=== PATIENT | female | born 1955 | race Caucasian/White ===

== ENCOUNTER 2016-08-26 06:59 | Emergency (ER) | payer OTHER ==
[~2016-08-26] VITALS: Ht 167.6 cm; Wt 75.0 kg
[~2016-08-26 06:59] MED LIST: DIAZ5 PO; IBUP800 PO; IBUP800T23 PO; LEVO75TA3 PO; LORA10TA PO; OXYC15TA PO; TIZA4 PO
[2016-08-26 07:00] VITALS: BP 146/78; PULSE 88; RESP 17; TEMP 97.8; O2SAT 99
--- NOTE | 2016-08-26 07:08 | PD ---
HPI . sinus pressure/ear ache and swollen glands x 1 week Chief Complaint: ENT Complaint Time Seen by Provider: 07:08 Travel History International Travel<30 days: No Contact w/Intl Traveler<30days: No Traveled to known affect area: No History of Present Illness HPI 61 yr old female here with c/o sinus pressure, earache, swollen glands x 1 week. She says she has been feeling a lot of pressure in her head. She reports some issues with swallowing and having some discomfort in her throat. She also reports ear pain R>L. She denies any fever or chills. PFSH Past Medical History Hx Anticoagulant Therapy: No COPD: Yes GERD: Yes Thyroid Disease: Yes Social History Tobacco Use: No (quit last year) Allergies-Medications (Allergen,Severity, Reaction): Coded Allergies: Morphine (Verified Allergy, Unknown, 08/26/16) Reported Meds & Prescriptions Reported Meds & Active Scripts Active Augmentin (Amoxicillin-Clavulanate) 875-125 mg Tab 875 Mg PO BID not for use in CrCl <30 ml/min. Reported Pantoprazole (Pantoprazole Sodium) 40 Mg Tab 40 Mg PO DAILY Ventolin Hfa 18 GM Inh (Albuterol Sulfate) 90 Mcg/Act Aer 1 Puff INH Q4H PRN Zocor (Simvastatin) 20 Mg Tab 20 Mg PO DAILY Tizanidine (Tizanidine HCl) 4 Mg Cap 4 Mg PO TID Lortab (Hydrocodone-Acetaminophen) 7.5-325 Mg Tab 1 Tab PO Q6H PRN Levothyroxine (Levothyroxine Sodium) 112 Mcg Tab 112 Mcg PO DAILY Valium (Diazepam) 5 Mg Tab 5 Mg PO BID PRN Review of Systems General / Constitutional: No: Fever Eyes: No: Visual changes HENT: Positive: Sore Throat, Congestion, Earache, No: Headaches Cardiovascular: No: Chest Pain or Discomfort Respiratory: No: Shortness of Breath Gastrointestinal: No: Abdominal Pain Genitourinary: No: Dysuria Musculoskeletal: No: Pain Skin: No Rash Neurologic: No: Weakness Psychiatric: No: Depression Endocrine: No: Polydipsia Hematologic/Lymphatic: No: Easy Bruising Physical Exam Narrative GENERAL: AAO x 3, no acute distress, Well-nourished, well-developed patient. SKIN: Warm and dry. No visible rashes or bruising. HEAD: Normocephalic and atraumatic. EYES: No scleral icterus. No injection or drainage. ENT: No nasal drainage noted. Mucous membranes pink. Airway patent.+ frontal and maxillary sinus tenderness Mild post nasal drip, TM with air bubbles b/l, no bulging, erythema or purulence of TM NECK: Supple, trachea midline. No JVD. no lymphadenopathy. CARDIOVASCULAR: Regular rate and rhythm without murmurs, gallops, or rubs. RESPIRATORY: Breath sounds equal bilaterally. No accessory muscle use. No rhonchi or rales. no wheezing GASTROINTESTINAL: Abdomen soft, non-tender, nondistended. EXTREMITIES: No cyanosis or edema. BACK: Nontender without obvious deformity. No CVA tenderness. PSYCH: AAO x 3, normal affect. Data Data Last Documented VS Vital Signs Date Time Temp Pulse Resp B/P Pulse Ox O2 Delivery O2 Flow Rate FiO2 08/26/16 07:00 97.8 88 17 146/78 99 MDM Medical Decision Making Medical Screen Exam Complete: Yes Emergency Medical Condition: Yes Medical Record Reviewed: Yes Differential Diagnosis sinusitis, allergic rhinitis, pharyngitis, less likely bronchitis Narrative Course 61 yr old female here with c/o sinus pressure, earache, swollen glands x 1 week. She says she has been feeling a lot of pressure in her head. She reports some issues with swallowing and having some discomfort in her throat. She also reports ear pain R>L. She denies any fever or chills. Patient seen and examined. She has some post nasal drip and frontal and maxillary sinus tenderness. She appears to have an acute sinusitis. I will treat with augmentin. Treatment plan discussed with patient and she is in agreement. She was advised to f/u with her pcp. Diagnosis Primary Impression: Acute sinusitis Qualified Code: J01.10 - Acute frontal sinusitis, recurrence not specified Patient Instructions: General Instructions, Sinusitis (ED) Additional Instructions: Please return to emergency department if your symptoms return or worsen. Follow up with your primary care provider. Take medications as prescribed. Med/Other Pt SpecificInfo: Prescription(s) given Scripts Amoxicillin-Clavulanate (Augmentin)875-125 mg [id number] Mg PO BID #20 TAB not for use in CrCl <30 ml/min. Prov:Dain Ricketts MD 08/26/16 Disposition: 01 DISCHARGE HOME Condition: Stable Nadya Jacinto August 26, 2016 07:08
[2016-08-26] MEDS ORDERED: LEVO112T2 PO (07:15)
[2016-08-26] MEDS ORDERED: HYDR-3534 PO (07:15)
[2016-08-26] MEDS ORDERED: VENTAER INH (07:18)
[2016-08-26] MEDS ORDERED: ZOCO20TA PO (07:18)
[2016-08-26] MEDS ORDERED: PANT40TA3 PO (07:18)
[2016-08-26] MEDS ORDERED: TIZA4CAP3 PO (07:18)
[2016-08-26] MEDS ORDERED: AUGM875T PO (07:21)
== END 2016-08-26 08:52 | disposition home or self-care (01) ==
LOC: NEPK 06:59
DX: J01.10 Acute frontal sinusitis, unspecified (principal); Z87.891 Personal history of nicotine dependence
CPT/HCPCS: 99283

== ENCOUNTER 2016-11-29 08:00 | Emergency (ER) | payer OTHER ==
[~2016-11-29] VITALS: Ht 167.6 cm; Wt 72.5 kg
[~2016-11-29 08:00] MED LIST changes: +AUGM875T PO; +HYDR-3534 PO; -IBUP800 PO; -IBUP800T23 PO; +LEVO112T2 PO; -LEVO75TA3 PO; -LORA10TA PO; -OXYC15TA PO; +PANT40TA3 PO; -TIZA4 PO; +TIZA4CAP3 PO; +VENTAER INH; +ZOCO20TA PO
[2016-11-29 08:01] VITALS: BP 135/79; PULSE 114; RESP 15; TEMP 98.2; O2SAT 98
[2016-11-29] MEDS ORDERED: FLUT1SPR5 EACH NARE (09:14)
[2016-11-29] MEDS ORDERED: CYCL1TAB29 PO (09:14)
[2016-11-29] MEDS ORDERED: DIAZ5 PO (09:14)
[2016-11-29 09:40] VITALS: PULSE 88; O2SAT 96
--- NOTE | 2016-11-29 09:43 | PD ---
HPI Chief Complaint: Skin Problem Time Seen by Provider: 09:39 Travel History International Travel<30 days: No Contact w/Intl Traveler<30days: No Traveled to known affect area: No History of Present Illness HPI 61-year-old female presents to emergency department with complaint of an itchy rash to the back of her right calf since Monday. She says it was a small area that went away and another area has developed just right above the. Reports that it is itchy and raised. Denies fever, vomiting. Denies new exposures to lotions, soaps, detergents, perfumes, medications, foods. Has been rubbing it with alcohol to decrease the itching for symptom management. Allergies to morphine. Has not tried any other treatments to alleviate her symptoms. Symptoms are mild in severity. Has no other medical complaints. No other modifying factors or associated signs and symptoms. History Past Surgical History Surgical History: No Previous Surgery Social History Alcohol Use: No Tobacco Use: No Allergies-Medications (Allergen,Severity, Reaction): Coded Allergies: Morphine (Verified Allergy, Unknown, 11/29/16) Reported Meds & Prescriptions Reported Meds & Active Scripts Active Reported Flonase Nasal [place] (Fluticasone Nasal [place]) 50 Mcg/Act [place] 50 Mcg EACH NARE BID Flexeril (Cyclobenzaprine HCl) 10 Mg Tab 10 Mg PO TID Valium (Diazepam) 5 Mg Tab 5 Mg PO BID PRN Pantoprazole (Pantoprazole Sodium) 40 Mg Tab 40 Mg PO DAILY Ventolin Hfa 18 GM Inh (Albuterol Sulfate) 90 Mcg/Act Aer 1 Puff INH Q4H PRN Zocor (Simvastatin) 20 Mg Tab 20 Mg PO DAILY Tizanidine (Tizanidine HCl) 4 Mg Cap 4 Mg PO TID Lortab (Hydrocodone-Acetaminophen) 7.5-325 Mg Tab 1 Tab PO Q6H PRN Levothyroxine (Levothyroxine Sodium) 112 Mcg Tab 112 Mcg PO DAILY Review of Systems Except as stated in HPI: all other systems reviewed are Neg Physical Exam Narrative GENERAL: Well-nourished, well-developed female patient, in no acute distress; afebrile, nontoxic-appearing SKIN: Warm and dry. Approximately 1.5 cm in diameter raised, pustular rash to the right calf; without erythema; no signs of cellulitis. No signs of infection. HEAD: Atraumatic. Normocephalic. EYES: Pupils equal and round. No scleral icterus. No injection or drainage. ENT: Mucosa pink and moist. Airway patent. NECK: Trachea midline. CARDIOVASCULAR: Regular rate. RESPIRATORY: No accessory muscle use. GASTROINTESTINAL: Flat. MUSCULOSKELETAL: No obvious deformities. No clubbing. No cyanosis. No edema. NEUROLOGICAL: Awake and alert. Oriented 3. No obvious cranial nerve deficits. Motor grossly within normal limits. Normal speech. PSYCHIATRIC: Appropriate mood and affect; insight and judgment normal. Data Data Last Documented VS Vital Signs Date Time Temp Pulse Resp B/P Pulse Ox O2 Delivery O2 Flow Rate FiO2 11/29/16 09:40 88 96 Room Air 11/29/16 08:01 98.2 15 135/79 MDM Medical Screen Exam Complete: Yes Emergency Medical Condition: No Differential Diagnosis Insect bite, nonspecific rash, nonspecific skin interruption Narrative Course 61-year-old female with a nonspecific skin eruption to the back of her right calf that measures approximately 1 cm in diameter. There is no signs of infection or cellulitis to the area. Patient is afebrile and nontoxic- appearing. Instructed patient to use [id number] hydrocortisone 1% as directed and as needed for symptom management. Discussed reasons to return to the emergency department. Vital signs are stable and the patient is stable for outpatient follow-up and treatment. The patient has no urgent or emergent medical complaints. There is no emergent or urgent medical need at this time. I instructed the patient to follow up with their primary care provider. A medical screening exam was performed: At the time of evaluation the presenting medical condition was determined not to be of an emergent nature. The patient was given the option of receiving additional care, but declined. Patient was given options for additional community resources from which to obtain care. The Patient Has Been advised to seek medical attention for their presenting complaint. The patient has been advised to return to the ER at any time if an emergent condition develops. Primary Impression: Encounter for medical screening examination Condition: Stable Eli Molina Nov 29, 2016 09:43
== END 2016-11-29 09:53 | disposition left against medical advice (07) ==
LOC: NEPK 08:00
DX: R21 Rash and other nonspecific skin eruption (principal); Z88.5 Allergy status to narcotic agent; Z79.899 Other long term (current) drug therapy
CPT/HCPCS: 99281

== ENCOUNTER 2017-01-11 07:57 | Emergency (ER) | payer OTHER ==
[~2017-01-11] VITALS: Ht 167.6 cm; Wt 72.7 kg
[~2017-01-11 07:57] MED LIST changes: -AUGM875T PO; +CYCL1TAB29 PO; +FLUT1SPR5 EACH NARE
[2017-01-11 08:00] VITALS: BP 127/77; PULSE 95; RESP 14; TEMP 98.1; O2SAT 97
--- NOTE | 2017-01-11 08:29 | PD ---
HPI Chief Complaint: Pain: Acute or Chronic Time Seen by Provider: 08:23 Travel History International Travel<30 days: No Contact w/Intl Traveler<30days: No Traveled to known affect area: No History of Present Illness HPI 61-year-old female presents emergency Department with complaint of left knee pain 2 months. Denies injury. Was seen at [facility] last week and had x-ray done and was told that her knee was "bruised." Denies paresthesias, loss of sensation, decreased range of motion, decreased strength to the affected extremity. Reports being ambulatory with a limp to the left lower extremity. Denies fever, vomiting. Has been taking Lortab that she has for chronic back pain for her knee pain also. Pain is aggravated with palpation and ambulation. Pain is decreased with rest. Has a cane at home that she can use for support. Symptoms are mild in severity. Has no other medical complaints. No other modifying factors or associated signs and symptoms. History Past Medical Histgory Tetanus Vaccination: > 5 Years Menopausal: Yes Social History Alcohol Use: Yes (Beer occ ) Tobacco Use: No (QUIT 2 YEARS AGO ) Allergies-Medications (Allergen,Severity, Reaction): Coded Allergies: morphine (Unverified Allergy, Unknown, 01/11/17) Reported Meds & Prescriptions Reported Meds & Active Scripts Active Reported Flonase Nasal [place] (Fluticasone Nasal [place]) 50 Mcg/Act [place] 50 Mcg EACH NARE BID Flexeril (Cyclobenzaprine HCl) 10 Mg Tab 10 Mg PO TID Valium (Diazepam) 5 Mg Tab 5 Mg PO BID PRN Pantoprazole (Pantoprazole Sodium) 40 Mg Tab 40 Mg PO DAILY Ventolin Hfa 18 GM Inh (Albuterol Sulfate) 90 Mcg/Act Aer 1 Puff INH Q4H PRN Zocor (Simvastatin) 20 Mg Tab 20 Mg PO DAILY Lortab (Hydrocodone-Acetaminophen) 7.5-325 Mg Tab 1 Tab PO Q6H PRN Levothyroxine (Levothyroxine Sodium) 112 Mcg Tab 112 Mcg PO DAILY Review of Systems Except as stated in HPI: all other systems reviewed are Neg Physical Exam Narrative GENERAL: Well-nourished, well-developed female patient, in no acute distress; afebrile, nontoxic-appearing SKIN: Warm and dry. HEAD: Atraumatic. Normocephalic. EYES: Pupils equal and round. No scleral icterus. No injection or drainage. ENT: Mucosa pink and moist. Airway patent. NECK: Trachea midline. CARDIOVASCULAR: Regular rate. RESPIRATORY: No accessory muscle use. GASTROINTESTINAL: Flat. MUSCULOSKELETAL: Left knee nonedematous, nonerythematous, and without ecchymosis ; full range of motion and flexion to 90; point tenderness to the medial aspect ; joint stable with negative drawer test; no obvious deformity. Left Lower extremity is supple and non-tense with 2+ pedal pulse and sensory intact and without erythema or edema. Ambulatory in room with a limp to the Left lower extremity. NEUROLOGICAL: Awake and alert. Oriented 3. No obvious cranial nerve deficits. Motor grossly within normal limits. Normal speech. PSYCHIATRIC: Appropriate mood and affect; insight and judgment normal. Data Data Last Documented VS Vital Signs Date Time Temp Pulse Resp B/P (MAP) Pulse Ox O2 Delivery O2 Flow Rate FiO2 01/11/17 08:00 98.1 95 14 127/77 (94) 97 MDM Medical Screen Exam Complete: Yes Emergency Medical Condition: No Differential Diagnosis Knee pain, arthritis, bursitis Narrative Course 61-year-old female with left knee pain 2 months. Denies injury. Was seen at [facility] ([place] Fish week ago and had an x-ray of the knee and per the patient was told that she "bruised" her knee. She has a cane at home for support. Instructed patient to use knee brace for support. I do not suspect fracture or dislocation until that imaging is not necessary at this time. Patient has Lortab for chronic back pain for pain management. Vital signs are stable and the patient is stable for outpatient follow-up and treatment. The patient has no urgent or emergent medical complaints. There is no emergent or urgent medical need at this time. I instructed the patient to follow up with their primary care provider. A medical screening exam was performed: At the time of evaluation the presenting medical condition was determined not to be of an emergent nature. The patient was given the option of receiving additional care, but declined. Patient was given options for additional community resources from which to obtain care. The Patient Has Been advised to seek medical attention for their presenting complaint. The patient has been advised to return to the ER at any time if an emergent condition develops. Primary Impression: Encounter for medical screening examination Condition: Stable Eli Molina Jan 11, 2017 08:29
== END 2017-01-11 08:32 | disposition left against medical advice (07) ==
LOC: NEPD 07:57
DX: M25.562 Pain in left knee (principal)
CPT/HCPCS: 99281